=== PATIENT | male | born 1935 | race Caucasian/White ===

== ENCOUNTER 2016-08-04 10:43 | Inpatient (IN) | payer OTHER ==
[~2016-08-04] VITALS: Ht 175.3 cm; Wt 103.6 kg
[~2016-08-04 10:43] MED LIST: APR25 PO; ASPIR-LOW81 M1 PO; BACDS PO; BACO TOP; CARVEDILOL12.5 MG PO; CAT0.1 PO; CLONIDINE0.2 MG PO; COL100 PO; COR200 PO; CORE25 PO; COZ50 PO; ENABLEX15 MG PO; FUROCOT20 MG PO; GLU5 PO; HIBICLENS118 ML TOP; K10 PO; KEF500 PO; L20 PO; LOSARTAN POTAS100 MG PO; LOSARTAN POTASS25 M1 PO; METFORMIN HCL500 MG PO; NEXIUM I.V.40 MG PO; PYR100 PO; RES15 PO; SIMVASTATIN40 MG PO; VAL5; VESICARE10 MG PO; ZOC20 PO
[2016-08-04 11:25] LABS: PLATELET COUNT 147 x10^3mcL (130-400)
[2016-08-04 11:26] LABS: BASOPHIL % 0 % (0-2); RED CELL DISTRIBUTION WIDTH 20.8 % (11.5-14.5)
[2016-08-04] MEDS ORDERED: IBUPROFEN400 MG PO (11:30)
[2016-08-04] MEDS ORDERED: LIPITOR80 MG PO (11:30)
[2016-08-04] MEDS ORDERED: LOSARTAN POTASS50 M1 PO (11:31)
[2016-08-04] MEDS ORDERED: MORPHINE SULFAT30 M6 PO (11:31)
[2016-08-04 12:07] LABS: schistocyte (helmet cell) 1+
[2016-08-04 12:08] LABS: ovalocyte/elliptocyte 1+; rbc morphology (normal/abnorm) ABNORMAL (NORMAL)
[2016-08-04 12:21] LABS: CARBON DIOXIDE 29 mmol/L (21-32); CHLORIDE SERUM 100 mmol/L (98-107); GLUCOSE SERUM 140 mg/dL (74-106); POTASSIUM SERUM 4.3 mmol/L (3.5-5.1); SODIUM SERUM 138 mmol/L (136-145)
[2016-08-04 12:22] LABS: TOTAL PROTEIN, SERUM 6.7 g/dL (6.4-8.2)
[2016-08-04 12:23] LABS: ALKALINE PHOSPHATASE 145 U/L (46-116); ALT/SGPT 17 U/L (16-63); AST/SGOT 30 U/L (15-37); BILIRUBIN TOTAL 0.56 mg/dL (0.20-1.00); CALCIUM 7.6 mg/dL (8.5-10.1)
[2016-08-04 12:25] LABS: ALBUMIN 2.7 g/dL (3.4-5.0)
[2016-08-04 12:40] LABS: microscopic required? YES; urine erythrocyte 2+ (NEGATIVE)
[2016-08-04 14:57] VITALS: BP 89/49
[2016-08-04 15:08] LABS: CHOLESTEROL/HDL RATIO 3.8
[2016-08-04 15:13] LABS: T3 TOTAL 0.54 ng/mL
[2016-08-04 15:15] LABS: FREE T4 1.08 ng/dL (0.76-1.46); FREE THYROXINE INDEX 2.7 ug/dL (1.4-4.5); T4(THYROXINE) 6.7 ug/dL (4.7-13.3)
[2016-08-04 19:30] VITALS: BP 88/43
[2016-08-04 20:20] VITALS: BP 112/46
[2016-08-04 20:32] VITALS: BP 112/46
[2016-08-05 04:21] LABS: BASOPHIL % 0.2 % (0-2); PLATELET COUNT 130 x10^3mcL (130-400)
[2016-08-05 04:41] LABS: CALCIUM 7.2 mg/dL (8.5-10.1); CARBON DIOXIDE 28.8 mmol/L (21-32); CHLORIDE SERUM 101 mmol/L (98-107); GLUCOSE SERUM 104 mg/dL (74-106); PHOSPHOROUS 4.4 mg/dL (2.5-4.9); POTASSIUM SERUM 3.8 mmol/L (3.5-5.1); SODIUM SERUM 137 mmol/L (136-145)
[2016-08-05 04:44] LABS: CREATININE SERUM 4.5 mg/dL (0.7-1.3)
[2016-08-05 04:49] LABS: RED CELL DISTRIBUTION WIDTH 20.5 % (11.5-14.5)
[2016-08-05 06:11] VITALS: BP 93/45
[2016-08-05 09:28] VITALS: BP 88/49
[2016-08-05 13:29] VITALS: BP 90/52
[2016-08-05 18:02] VITALS: BP 98/53
[2016-08-05 21:16] VITALS: BP 93/51
[2016-08-06 06:20] VITALS: BP 105/62
[2016-08-06 07:15] LABS: BASOPHIL % 0.4 % (0-2); PLATELET COUNT 151 x10^3mcL (130-400); RED CELL DISTRIBUTION WIDTH 20.3 % (11.5-14.5)
[2016-08-06 07:17] LABS: ovalocyte/elliptocyte 1+; rbc morphology (normal/abnorm) ABNORMAL (NORMAL); schistocyte (helmet cell) 1+
[2016-08-06 07:49] LABS: CALCIUM 7.6 mg/dL (8.5-10.1); CARBON DIOXIDE 29.7 mmol/L (21-32); CHLORIDE SERUM 101 mmol/L (98-107); GLUCOSE SERUM 96 mg/dL (74-106); MAGNESIUM 2.2 mg/dL (1.8-2.4); PHOSPHOROUS 4.8 mg/dL (2.5-4.9); POTASSIUM SERUM 4.3 mmol/L (3.5-5.1); SODIUM SERUM 139 mmol/L (136-145)
[2016-08-06 09:55] VITALS: BP 100/55
[2016-08-06 11:54] VITALS: Ht 175.3 cm; Wt 103.6 kg
[2016-08-06 13:10] VITALS: BP 105/53
[2016-08-06 18:15] VITALS: BP 103/48
[2016-08-06 20:35] VITALS: BP 104/72
[2016-08-07 06:43] VITALS: BP 114/64
[2016-08-07 07:24] LABS: BASOPHIL % 0.2 % (0-2); PLATELET COUNT 150 x10^3mcL (130-400)
[2016-08-07 07:29] LABS: RED CELL DISTRIBUTION WIDTH 20.7 % (11.5-14.5); rbc morphology (normal/abnorm) ABNORMAL (NORMAL)
[2016-08-07 07:30] LABS: ovalocyte/elliptocyte 1+; schistocyte (helmet cell) 1+
[2016-08-07 07:33] LABS: CALCIUM 7.9 mg/dL (8.5-10.1); CARBON DIOXIDE 28.4 mmol/L (21-32); CHLORIDE SERUM 103 mmol/L (98-107); CREATININE SERUM 3.4 mg/dL (0.7-1.3); GLUCOSE SERUM 97 mg/dL (74-106); POTASSIUM SERUM 4.3 mmol/L (3.5-5.1); SODIUM SERUM 141 mmol/L (136-145)
[2016-08-07] MEDS ORDERED: CLOPIDOGREL75 M1 PO (10:11)
[2016-08-07] MEDS ORDERED: APAP/HYDROCODON1 T13 PO (10:13)
[2016-08-07 10:23] VITALS: BP 112/56
[2016-08-07] MEDS ORDERED: LAC PO (11:00)
[2016-08-07 14:43] VITALS: BP 108/59
[2016-08-07 17:42] VITALS: BP 121/52
[2016-08-07 20:46] VITALS: BP 128/70
[2016-08-08 06:04] VITALS: BP 132/66
[2016-08-08 06:05] LABS: BASOPHIL % 0.4 % (0-2); PLATELET COUNT 169 x10^3mcL (130-400)
[2016-08-08 06:34] LABS: CALCIUM 8.2 mg/dL (8.5-10.1); CARBON DIOXIDE 29.2 mmol/L (21-32); CHLORIDE SERUM 104 mmol/L (98-107); CREATININE SERUM 2.8 mg/dL (0.7-1.3); GLUCOSE SERUM 105 mg/dL (74-106); MAGNESIUM 2.3 mg/dL (1.8-2.4); PHOSPHOROUS 3.7 mg/dL (2.5-4.9); POTASSIUM SERUM 4.3 mmol/L (3.5-5.1); SODIUM SERUM 141 mmol/L (136-145)
[2016-08-08 06:44] LABS: ovalocyte/elliptocyte 1+; rbc morphology (normal/abnorm) ABNORMAL (NORMAL); schistocyte (helmet cell) 1+
[2016-08-08 09:40] VITALS: BP 95/69
[2016-08-08] MEDS ORDERED: FLO4 PO (09:50)
[2016-08-08] MEDS ORDERED: ALDACTONE25 MG PO (09:53)
[2016-08-08 13:03] VITALS: BP 130/70
[2016-08-08] MEDS ORDERED: COREG12.5 MG PO (16:00)
[2016-08-08 16:51] VITALS: BP 130/70
[2016-08-08] MEDS ORDERED: LAC PO (17:12)
[2016-08-08] MEDS ORDERED: KEFLEX500 M1 PO (17:15)
== END 2016-08-08 17:55 | disposition hospice, home (50) | DRG 981 ==
LOC: ED 10:43 → DU 13:26
PROVIDERS: Emergency Medicine; Family Medicine; ADMIT Family Medicine
PROC: 0KBW0ZZ Excision of Left Foot Muscle, Open Approach (ICD-10-PCS; principal; 2016-08-08)
DX: I25.119 Atherosclerotic heart disease of native coronary artery with unspecified angina pectoris (principal); N17.0 Acute kidney failure with tubular necrosis; E43 Unspecified severe protein-calorie malnutrition; I50.43 Acute on chronic combined systolic (congestive) and diastolic (congestive) heart failure; N39.0 Urinary tract infection, site not specified; I69.354 Hemiplegia and hemiparesis following cerebral infarction affecting left non-dominant side; Z68.41 Body mass index [BMI] 40.0-44.9, adult; I11.0 Hypertensive heart disease with heart failure; I25.5 Ischemic cardiomyopathy; N28.89 Other specified disorders of kidney and ureter; N31.9 Neuromuscular dysfunction of bladder, unspecified; L89.620 Pressure ulcer of left heel, unstageable; L89.310 Pressure ulcer of right buttock, unstageable; L30.4 Erythema intertrigo; E11.65 Type 2 diabetes mellitus with hyperglycemia; E11.51 Type 2 diabetes mellitus with diabetic peripheral angiopathy without gangrene; N40.0 Benign prostatic hyperplasia without lower urinary tract symptoms; E78.5 Hyperlipidemia, unspecified; E66.01 Morbid (severe) obesity due to excess calories; Z95.0 Presence of cardiac pacemaker; Z79.82 Long term (current) use of aspirin; Z95.1 Presence of aortocoronary bypass graft
CPT/HCPCS: 82962; 83880; 84439; 97110-GP; 97530-GP; J0696; J1644; J1940; J1956; J2001; J2270; J7030; J7040; J7050; Q0092